=== PATIENT | male | born 1955 | race Caucasian/White ===

== ENCOUNTER 2018-07-14 14:50 | Emergency (ER) | payer BC ==
[2018-07-14 15:02] VITALS: TEMP 98.3
--- NOTE | 2018-07-14 15:18 | ED ---
General Adult HPI - General Chief complaint: Back Pain/Injury Stated complaint: back pain/poss kidney stones Time Seen by Provider: 07/14/18 15:03 Source: patient Mode of arrival: ambulatory Limitations: no limitations - History of Present Illness Initial comments: 63-year-old male presenting today for chief complaint of right-sided flank pain that structures towards the right groin. Patient states that he has history of kidney stones. He states this feels similar however intensified from his usual. He states he has had some nausea and vomiting. He states his urine appears darker. Patient presented for evaluation and pain control. Patient has fever or chills night sweat. Denies dysuria urgency frequency. Patient has a chest pain or short of breath he denies any lower extremity swelling. Remaining review of systems negative. Upon arrival patient appears well. - Related Data Home Medications Medication Instructions Recorded Confirmed Ascorbic Acid [Vitamin C] 1,000 mcg PO DAILY 07/14/18 07/14/18 Cholecalciferol (Vitamin D3) 2,000 unit PO DAILY 07/14/18 07/14/18 [Vitamin D3] Metoprolol Succinate (ER) [Toprol 50 mg PO BID 07/14/18 07/14/18 XL] [place]-3 Fatty Acids/Fish Oil [Fish 1 cap PO DAILY 07/14/18 07/14/18 Oil 1,000 mg Softgel] Sertraline [Zoloft] 50 mg PO DAILY 07/14/18 07/14/18 Simvastatin [Zocor] 20 mg PO DAILY 07/14/18 07/14/18 amLODIPine [Norvasc] 5 mg PO DAILY 07/14/18 07/14/18 Previous Rx's Medication Instructions Recorded Cephalexin [Keflex] 500 mg PO Q12HR 3 Days #6 cap 07/14/18 Ketorolac [Toradol] 10 mg PO Q6HR PRN 5 Days #20 tab 07/14/18 Ondansetron Odt [Zofran Odt] 4 mg PO Q8HR PRN 5 Days #15 tab 07/14/18 Allergies Allergy/AdvReac Type Severity Reaction Status Date / Time No Known Allergies Allergy Verified 07/14/18 15:34 Review of Systems ROS Statement: Those systems with pertinent positive or pertinent negative responses have been documented in the HPI. ROS Other: All systems not noted in ROS Statement are negative. Past Medical History Past Medical History: Hyperlipidemia, Hypertension Additional Past Medical History / Comment(s): kidney stones History of Any Multi-Drug Resistant Organisms: None Reported Past Psychological History: Depression Smoking Status: Never smoker Past Alcohol Use History: None Reported Past Drug Use History: None Reported General Exam - General Exam Comments Initial Comments: General: The patient is awake and alert, in no distress, and does not appear acutely ill. Eye: +3 mm pupils are equal, round and reactive to light, extra-ocular movements are intact. No nystagmus. There is normal conjunctiva bilaterally. No signs of icterus. Ears, nose, mouth and throat: There are moist mucous membranes and no oral lesions. Neck: The neck is supple, there is no tenderness or JVD. Cardiovascular: There is a regular rate and rhythm. No murmur, rub or gallop is appreciated. Respiratory: Lungs are clear to auscultation, respirations are non-labored, breath sounds are equal. No wheezes, stridor, rales, or rhonchi. Gastrointestinal: Soft, non-distended, non-tender abdomen without masses or organomegaly noted. There is no rebound or guarding present. No CVA tenderness. Bowel sounds are unremarkable. Musculoskeletal: Normal ROM, no tenderness. Strength 5/5. Sensation intact. Radial pulses equal bilaterally 2+. Neurological: A&O x 3. CN II-XII intact, There are no obvious motor or sensory deficits. Coordination appears grossly intact. Speech is normal. Skin: Skin is warm and dry and no rashes or lesions are noted. Psychiatric: Cooperative, appropriate mood & affect, normal judgment. Limitations: no limitations Course Vital Signs 07/14/18 07/14/18 14:59 16:30 Temperature 98.3 F Pulse Rate 73 73 Respiratory 18 16 Rate Blood Pressure 186/96 185/100 O2 Sat by Pulse 96 94 L Oximetry Medical Decision Making - Medical Decision Making Appearing 63-year-old male presenting today for chief complaint of right-sided flank pain. Patient states feels similar to when he had kidney stones in the past. Patient has not had recent imaging studies. Urinalysis revealed red blood cells. CT of the abdomen and pelvis revealed 7mm of the mid ureter renal calculi, mild perinephritic stranding and hydronephrosis. Patient denies any constitutional symptoms fever chills or night sweats afebrile upon arrival. No white blood cells or nitrites on urinalysis concerning for infection. At this time feel patient is stable for discharge with outpatient urology follow-up she'll be given for special for Toradol as well as Keflex. Patient is agreeable with care plan in is aware of return parameters which were discussed. Patient is aware of the importance of outpatient urology follow-up. After discussing case attempt by Dr. Cortez patient was discharged appearing well - Lab Data Result diagrams: 07/14/18 15:44 07/14/18 15:44 Lab Results 07/14/18 07/14/18 07/14/18 Range/Units 15:44 15:44 16:30 WBC 10.4 (3.8-10.6) k/uL RBC 5.35 (4.30-5.90) m/uL Hgb 15.3 (13.0-17.5) gm/dL Hct 47.5 (39.0-53.0) % MCV 88.7 (80.0-100.0) fL MCH 28.6 (25.0-35.0) pg MCHC 32.3 (31.0-37.0) g/dL RDW 14.5 (11.5-15.5) % Plt Count 253 (150-450) k/uL Neutrophils % 77 % Lymphocytes % 14 % Monocytes % 6 % Eosinophils % 2 % Basophils % 0 % Neutrophils # 8.0 H (1.3-7.7) k/uL Lymphocytes # 1.4 (1.0-4.8) k/uL Monocytes # 0.6 (0-1.0) k/uL Eosinophils # 0.2 (0-0.7) k/uL Basophils # 0.0 (0-0.2) k/uL Sodium 139 (137-145) mmol/L Potassium 4.2 (3.5-5.1) mmol/L Chloride 105 (98-107) mmol/L Carbon Dioxide 27 (22-30) mmol/L Anion Gap 7 mmol/L BUN 14 (9-20) mg/dL Creatinine 0.76 (0.66-1.25) mg/dL Est GFR (CKD-EPI)AfAm >90 (>60 ml/min/1.73 sqM) Est GFR (CKD-EPI)NonAf >90 (>60 ml/min/1.73 sqM) Glucose 105 H (74-99) mg/dL Calcium 9.7 (8.4-10.2) mg/dL Total Bilirubin 0.5 (0.2-1.3) mg/dL AST 41 (17-59) U/L ALT 39 (21-72) U/L Alkaline Phosphatase 73 (38-126) U/L Total Protein 7.5 (6.3-8.2) g/dL Albumin 4.5 (3.5-5.0) g/dL Urine Color Light Yellow Urine Appearance Clear (Clear) Urine pH 7.0 (5.0-8.0) Ur Specific [place] 1.013 (1.001-1.035) Urine Protein Negative (Negative) Urine Glucose (UA) Negative (Negative) Urine Ketones Negative (Negative) Urine Blood Small H (Negative) Urine Nitrite Negative (Negative) Urine Bilirubin Negative (Negative) Urine Urobilinogen <2.0 (<2.0) mg/dL Ur Leukocyte Esterase Negative (Negative) Urine RBC 62 H (0-5) /hpf Urine WBC <1 (0-5) /hpf Urine Mucus Rare H (None) /hpf Disposition Clinical Impression: Kidney stone on right side Disposition: HOME SELF-CARE Condition: Good Instructions (If sedation given, give patient instructions): Kidney Stones (ED) Additional Instructions: Please use medication as discussed. Please follow-up with family doctor in the next 2 days, urology in next 2-3 days. Please return to emergency room if the symptoms increase or worsen or for any other concerns. Prescriptions: Cephalexin [Keflex] 500 mg PO Q12HR 3 Days #6 cap Ketorolac [Toradol] 10 mg PO Q6HR PRN 5 Days #20 tab PRN Reason: Severe Pain Ondansetron Odt [Zofran Odt] 4 mg PO Q8HR PRN 5 Days #15 tab PRN Reason: Nausea Is patient prescribed a controlled substance at d/c from ED?: No Referrals: Christian Singh MD [Primary Care Provider] - 1-2 days Charles Cason MD [STAFF PHYSICIAN] - 1-2 days Time of Disposition: 18:07
[2018-07-14] MEDS ORDERED: ONDANSETRON 4 MG/2 ML VIAL IVP STA (16:03)
[2018-07-14] MEDS ORDERED: KETOROLAC 30 MG/ML 1 ML VIAL IVP STA (16:03)
[2018-07-14 16:05] LABS: Basophils % (A) 0 %; Eosinophils # (A) 0.2 k/uL (0-0.7); Eosinophils % (A) 2 %; HCT 47.5 % (39.0-53.0); HGB 15.3 gm/dL (13.0-17.5); Lymphocytes # (A) 1.4 k/uL (1.0-4.8); Lymphocytes % (A) 14 %; MCH 28.6 pg (25.0-35.0); MCHC 32.3 g/dL (31.0-37.0); MCV 88.7 fL (80.0-100.0); Mean Platelet Volume 6.2; Monocytes # (A) 0.6 k/uL (0-1.0); Monocytes % (A) 6 %; Neutrophils % (A) 77 %; Platelet Count 253 k/uL (150-450); RBC 5.35 m/uL (4.30-5.90); RDW 14.5 % (11.5-15.5); WBC 10.4 k/uL (3.8-10.6)
[2018-07-14 16:15] LABS: ALT 39 U/L (21-72); AST 41 U/L (17-59); Albumin 4.5 g/dL (3.5-5.0); Alkaline Phosphatase 73 U/L (38-126); Anion Gap 7 mmol/L; Blood Urea Nitrogen 14 mg/dL (9-20); Calcium 9.7 mg/dL (8.4-10.2); Carbon Dioxide 27 mmol/L (22-30); Chloride 105 mmol/L (98-107); Glucose 105 mg/dL (74-99); Potassium 4.2 mmol/L (3.5-5.1); Sodium 139 mmol/L (137-145); Total Bilirubin 0.5 mg/dL (0.2-1.3); Total Protein 7.5 g/dL (6.3-8.2)
[2018-07-14 16:44] LABS: Appearance,Urine Clear (Clear); Bilirubin,Urine Negative (Negative); Blood,Urine Small (Negative); Color,Urine Light Yellow; Glucose,Urine (UA) Negative (Negative); Ketones,Urine Negative (Negative); Leukocyte Esterase,Urine Negative (Negative); Mucus,Urine Rare /hpf; Nitrite,Urine Negative (Negative); Protein,Urine Negative (Negative); RBC,Urine 62 /hpf (0-5); Specific Gravity,Urine 1.013 (1.001-1.035); Urobilinogen,Urine <2.0 mg/dL (<2.0); WBC,Urine <1 /hpf (0-5)
--- NOTE | 2018-07-14 17:33 | CT ---
EXAMINATION TYPE: CT abdomen pelvis w con DATE OF EXAM: 07/14/2018 COMPARISON: None HISTORY: Right flank pain. Kidney stone CT DLP: 3150.4 mGycm Automated exposure control for dose reduction was used. TECHNIQUE: Helical acquisition of images was performed from the lung bases through the pelvis. CONTRAST: Performed without Oral Contrast and with IV Contrast, patient injected with 100 mL of Isovue 300. FINDINGS: There is some atelectasis at the lung bases. Heart size is fairly normal. There is no pericardial eff usion. Stomach appears normal. Liver spleen pancreas gallbladder appear normal. Bile ducts are not dilated. There is no adrenal mass. There are a few 5 mm calculi in the interpolar left kidney. There is simila r 4 mm calculus anterior right kidney. There is right-sided hydronephrosis and perinephric edema. The re is right sided hydroureter with 7 mm calculus in the mid right ureter. Bladder distends smoothly. There is no pelvic mass. There is no inguinal hernia. There is no free fluid in the pelvis. There is no evidence of a bowel obstruction. Appendix appears normal. There is no mesenteric edema. T here is no sign of free air. There is no ascites. There is some spondylotic change in the lumbar spin e. There is a mild retrolisthesis at L5-S1. There is no compression fracture. IMPRESSION: BILATERAL RENAL CALCULI. OBSTRUCTING CALCULUS MID RIGHT URETER WITH RIGHT-SIDED HYDRONEPHROSIS AND PE RINEPHRIC EDEMA.
[2018-07-14 18:26] VITALS: BP 176/98; PULSE 71; RESP 18
== END 2018-07-14 18:17 | disposition home or self-care (01) ==
LOC: EC 14:50
DX: N13.2 Hydronephrosis with renal and ureteral calculous obstruction (principal); E78.5 Hyperlipidemia, unspecified; I10 Essential (primary) hypertension; F32.9 Major depressive disorder, single episode, unspecified; Z79.899 Other long term (current) drug therapy
CPT/HCPCS: 36415; 80053; 85025; 81001; 74177; 99284; 96374; 96375; J2405; J1885; Q9967

== ENCOUNTER 2020-03-10 11:19 | Emergency (ER) | payer BC ==
[2020-03-10 11:29] VITALS: TEMP 99.3
[2020-03-10] MEDS ORDERED: SODIUM CHLORIDE 0.9% 1,000 ML IV STA (11:42)
--- NOTE | 2020-03-10 11:51 | ED ---
General Adult HPI - General Chief complaint: Nausea/Vomiting/Diarrhea Stated complaint: nausea,vomiting/fever Time Seen by Provider: 03/10/20 11:31 Source: patient, RN notes reviewed Mode of arrival: ambulatory Limitations: no limitations - History of Present Illness Initial comments: This is a 64-year-old male presents emergency Department chief complaint of just does not feel well times one week. Patient states that he's had body aches, nausea vomiting diarrhea. Patient states he initially started with a headache, body aches is really fatigued. Patient states he did present to urgent care in which he had a negative: Spot at that time. Patient states that he's had no sick contacts he denies any difficulty breathing at this time. Patient does take medications for hyperlipidemia, depression, hypertension. Patient has no dysuria no hematuria no melena hematochezia no chest pain no headache currently no blurred vision - Related Data Home Medications Medication Instructions Recorded Confirmed Ascorbic Acid [Vitamin C] 1,000 mcg PO DAILY 07/14/18 07/14/18 Cholecalciferol (Vitamin D3) 2,000 unit PO DAILY 07/14/18 07/14/18 [Vitamin D3] Metoprolol Succinate (ER) [Toprol 50 mg PO BID 07/14/18 07/14/18 XL] [place]-3 Fatty Acids/Fish Oil [Fish 1 cap PO DAILY 07/14/18 07/14/18 Oil 1,000 mg Softgel] Sertraline [Zoloft] 50 mg PO DAILY 07/14/18 07/14/18 Simvastatin [Zocor] 20 mg PO DAILY 07/14/18 07/14/18 amLODIPine [Norvasc] 5 mg PO DAILY 07/14/18 07/14/18 Previous Rx's Medication Instructions Recorded Cephalexin [Keflex] 500 mg PO Q12HR 3 Days #6 cap 07/14/18 Ketorolac [Toradol] 10 mg PO Q6HR PRN 5 Days #20 tab 07/14/18 Ondansetron Odt [Zofran Odt] 4 mg PO Q8HR PRN 5 Days #15 tab 07/14/18 Ondansetron Odt [Zofran Odt] 4 mg PO Q8HR PRN #10 tab 03/10/20 Allergies Allergy/AdvReac Type Severity Reaction Status Date / Time No Known Allergies Allergy Verified 03/10/20 11:29 Review of Systems ROS Statement: Those systems with pertinent positive or pertinent negative responses have been documented in the HPI. ROS Other: All systems not noted in ROS Statement are negative. Past Medical History Past Medical History: Hyperlipidemia, Hypertension Additional Past Medical History / Comment(s): kidney stones History of Any Multi-Drug Resistant Organisms: None Reported Past Surgical History: No Surgical Hx Reported Past Psychological History: Depression Smoking Status: Never smoker Past Alcohol Use History: None Reported Past Drug Use History: None Reported General Exam Limitations: no limitations General appearance: alert, in no apparent distress Head exam: Present: atraumatic, normocephalic, normal inspection Eye exam: Present: normal appearance, PERRL, EOMI. Absent: scleral icterus, conjunctival injection, periorbital swelling ENT exam: Present: normal exam, normal oropharynx, mucous membranes moist Neck exam: Present: normal inspection, full ROM. Absent: tenderness, meningismus, lymphadenopathy Respiratory exam: Present: normal lung sounds bilaterally. Absent: respiratory distress, wheezes, rales, rhonchi, stridor Cardiovascular Exam: Present: regular rate, normal rhythm, normal heart sounds. Absent: systolic murmur, diastolic murmur, rubs, gallop, clicks GI/Abdominal exam: Present: soft, normal bowel sounds. Absent: distended, tenderness, guarding, rebound, rigid Neurological exam: Present: alert, oriented X3 Skin exam: Present: warm, dry, intact, normal color. Absent: rash Course Vital Signs 03/10/20 03/10/20 03/10/20 11:27 12:30 12:34 Temperature 99.3 F Pulse Rate 90 Respiratory 20 18 Rate Blood Pressure 186/86 O2 Sat by Pulse 92 L 90 L 93 L Oximetry 03/10/20 03/10/20 12:53 13:29 Temperature Pulse Rate 91 Respiratory 18 18 Rate Blood Pressure 153/81 O2 Sat by Pulse 93 L Oximetry Medical Decision Making - Medical Decision Making Chest x-ray shows minimal changes. Patient is covid positive. Labs are essentially unremarkable mild ketonuria. Patient was given minimal fluids states he feels improved. Patient updated on results and is requesting for discharged. Return parameters were discussed. - Lab Data Result diagrams: 03/10/20 11:52 03/10/20 11:52 Lab Results 03/10/20 03/10/20 03/10/20 Range/Units 11:52 11:52 11:52 WBC 4.8 (3.8-10.6) k/uL RBC 5.25 (4.30-5.90) m/uL Hgb 15.4 (13.0-17.5) gm/dL Hct 45.9 (39.0-53.0) % MCV 87.5 (80.0-100.0) fL MCH 29.4 (25.0-35.0) pg MCHC 33.6 (31.0-37.0) g/dL RDW 13.8 (11.5-15.5) % Plt Count 195 (150-450) k/uL MPV 6.5 Neutrophils % 77 % Lymphocytes % 14 % Monocytes % 6 % Eosinophils % 0 % Basophils % 2 % Neutrophils # 3.7 (1.3-7.7) k/uL Lymphocytes # 0.7 L (1.0-4.8) k/uL Monocytes # 0.3 (0-1.0) k/uL Eosinophils # 0.0 (0-0.7) k/uL Basophils # 0.1 (0-0.2) k/uL Sodium 136 L (137-145) mmol/L Potassium 4.0 (3.5-5.1) mmol/L Chloride 99 (98-107) mmol/L Carbon Dioxide 29 (22-30) mmol/L Anion Gap 8 mmol/L BUN 14 (9-20) mg/dL Creatinine 0.75 (0.66-1.25) mg/dL Est GFR (CKD-EPI)AfAm >90 (>60 ml/min/1.73 sqM) Est GFR (CKD-EPI)NonAf >90 (>60 ml/min/1.73 sqM) Glucose 128 H (74-99) mg/dL Plasma Lactic Acid [place] 1.6 (0.7-2.0) mmol/L Calcium 8.9 (8.4-10.2) mg/dL Total Bilirubin 0.8 (0.2-1.3) mg/dL AST 40 (17-59) U/L ALT 25 (4-49) U/L Alkaline Phosphatase 65 (38-126) U/L Total Protein 7.3 (6.3-8.2) g/dL Albumin 4.0 (3.5-5.0) g/dL Lipase 244 (23-300) U/L Urine Color Urine Appearance (Clear) Urine pH (5.0-8.0) Ur Specific [place] (1.001-1.035) Urine Protein (Negative) Urine Glucose (UA) (Negative) Urine Ketones (Negative) Urine Blood (Negative) Urine Nitrite (Negative) Urine Bilirubin (Negative) Urine Urobilinogen (<2.0) mg/dL Ur Leukocyte Esterase (Negative) Urine RBC (0-5) /hpf Urine WBC (0-5) /hpf Urine Mucus (None) /hpf Coronavirus (PCR) (Not Detectd) 03/10/20 03/10/20 Range/Units 11:52 13:50 WBC (3.8-10.6) k/uL RBC (4.30-5.90) m/uL Hgb (13.0-17.5) gm/dL Hct (39.0-53.0) % MCV (80.0-100.0) fL MCH (25.0-35.0) pg MCHC (31.0-37.0) g/dL RDW (11.5-15.5) % Plt Count (150-450) k/uL MPV Neutrophils % % Lymphocytes % % Monocytes % % Eosinophils % % Basophils % % Neutrophils # (1.3-7.7) k/uL Lymphocytes # (1.0-4.8) k/uL Monocytes # (0-1.0) k/uL Eosinophils # (0-0.7) k/uL Basophils # (0-0.2) k/uL Sodium (137-145) mmol/L Potassium (3.5-5.1) mmol/L Chloride (98-107) mmol/L Carbon Dioxide (22-30) mmol/L Anion Gap mmol/L BUN (9-20) mg/dL Creatinine (0.66-1.25) mg/dL Est GFR (CKD-EPI)AfAm (>60 ml/min/1.73 sqM) Est GFR (CKD-EPI)NonAf (>60 ml/min/1.73 sqM) Glucose (74-99) mg/dL Plasma Lactic Acid [place]y (0.7-2.0) mmol/L Calcium (8.4-10.2) mg/dL Total Bilirubin (0.2-1.3) mg/dL AST (17-59) U/L ALT (4-49) U/L Alkaline Phosphatase (38-126) U/L Total Protein (6.3-8.2) g/dL Albumin (3.5-5.0) g/dL Lipase (23-300) U/L Urine Color Yellow Urine Appearance Clear (Clear) Urine pH 5.5 (5.0-8.0) Ur Specific [place] 1.023 (1.001-1.035) Urine Protein 1+ H (Negative) Urine Glucose (UA) Negative (Negative) Urine Ketones 2+ H (Negative) Urine Blood Trace H (Negative) Urine Nitrite Negative (Negative) Urine Bilirubin Negative (Negative) Urine Urobilinogen <2.0 (<2.0) mg/dL Ur Leukocyte Esterase Negative (Negative) Urine RBC 2 (0-5) /hpf Urine WBC 2 (0-5) /hpf Urine Mucus Rare H (None) /hpf Coronavirus (PCR) Detected A (Not Detectd) Disposition Clinical Impression: COVID-19, Nausea vomiting and diarrhea Disposition: HOME SELF-CARE Condition: Stable Instructions (If sedation given, give patient instructions): Acute Nausea and Vomiting (ED), Acute Diarrhea (ED) Additional Instructions: Please return to the Emergency Department if symptoms worsen or any other concerns. Prescriptions: Ondansetron Odt [Zofran Odt] 4 mg PO Q8HR PRN #10 tab PRN Reason: Nausea Is patient prescribed a controlled substance at d/c from ED?: No Referrals: Christian Singh MD [Primary Care Provider] - 1-2 days Time of Disposition: 14:35
[2020-03-10] MEDS ORDERED: ONDANSETRON 4 MG/2 ML VIAL IVP STA (12:07)
[2020-03-10 12:11] LABS: Basophils # (A) 0.1 k/uL (0-0.2); Basophils % (A) 2 %; Eosinophils % (A) 0 %; HCT 45.9 % (39.0-53.0); HGB 15.4 gm/dL (13.0-17.5); Lymphocytes # (A) 0.7 k/uL (1.0-4.8); Lymphocytes % (A) 14 %; MCH 29.4 pg (25.0-35.0); MCHC 33.6 g/dL (31.0-37.0); MCV 87.5 fL (80.0-100.0); Mean Platelet Volume 6.5; Monocytes # (A) 0.3 k/uL (0-1.0); Monocytes % (A) 6 %; Neutrophils # (A) 3.7 k/uL (1.3-7.7); Neutrophils % (A) 77 %; Platelet Count 195 k/uL (150-450); RBC 5.25 m/uL (4.30-5.90); RDW 13.8 % (11.5-15.5); WBC 4.8 k/uL (3.8-10.6)
[2020-03-10 12:20] LABS: ALT 25 U/L (4-49); AST 40 U/L (17-59); African American GFR (CKD) >90 (>60 ml/min/1.73 sqM); Alkaline Phosphatase 65 U/L (38-126); Anion Gap 8 mmol/L; Blood Urea Nitrogen 14 mg/dL (9-20); Calcium 8.9 mg/dL (8.4-10.2); Carbon Dioxide 29 mmol/L (22-30); Chloride 99 mmol/L (98-107); Glucose 128 mg/dL (74-99); Lipase 244 U/L (23-300); Non-African American GFR(CKD) >90 (>60 ml/min/1.73 sqM); Sodium 136 mmol/L (137-145); Total Bilirubin 0.8 mg/dL (0.2-1.3); Total Protein 7.3 g/dL (6.3-8.2)
[2020-03-10 12:31] VITALS: RESP 18
--- NOTE | 2020-03-10 12:32 | XR ---
EXAMINATION TYPE: XR chest 2V DATE OF EXAM: 03/10/2020 COMPARISON: NONE TECHNIQUE: PA and lateral views submitted. HISTORY: Pain FINDINGS: Patchy left perihilar infiltrate. No pneumothorax or pleural effusion. Heart size normal. Hypertrophi c and degenerative change of the spine. IMPRESSION: 1. Patchy left perihilar infiltrate correlate for pneumonitis
[2020-03-10 13:30] VITALS: BP 153/81; PULSE 91
[2020-03-10 14:04] LABS: Appearance,Urine Clear (Clear); Bilirubin,Urine Negative (Negative); Blood,Urine Trace (Negative); Color,Urine Yellow; Glucose,Urine (UA) Negative (Negative); Ketones,Urine 2+ (Negative); Leukocyte Esterase,Urine Negative (Negative); Mucus,Urine Rare /hpf; Nitrite,Urine Negative (Negative); PH, Urine 5.5 (5.0-8.0); Protein,Urine 1+ (Negative); RBC,Urine 2 /hpf (0-5); Specific Gravity,Urine 1.023 (1.001-1.035); Urobilinogen,Urine <2.0 mg/dL (<2.0); WBC,Urine 2 /hpf (0-5)
== END 2020-03-10 14:49 | disposition home or self-care (01) ==
LOC: EC 11:19
DX: U07.1 COVID-19 (principal); R11.2 Nausea with vomiting, unspecified; F32.9 Major depressive disorder, single episode, unspecified; E78.5 Hyperlipidemia, unspecified; I10 Essential (primary) hypertension; Z79.899 Other long term (current) drug therapy
CPT/HCPCS: 36415; 80053; 83605; 83690; 85025; 81001; 87635; 71046; 99284; 96374; 96361 ×3; J2405

== ENCOUNTER 2020-11-06 21:41 | Emergency (ER) | payer BC ==
[2020-11-06 22:06] VITALS: RESP 20
--- NOTE | 2020-11-06 22:17 | ED ---
General Adult HPI - General Chief complaint: Chest Pain Stated complaint: Chest Pain Time Seen by Provider: 11/06/20 21:47 Source: patient, RN notes reviewed Mode of arrival: ambulatory Limitations: no limitations - History of Present Illness Initial comments: This is a 65-year-old gentleman the presents emergency Department with chief complaint of epigastric discomfort. Patient states that he was eating dinner around 6:30 started having some indigestion which she states she has some pressure in his epigastric region he ended up taking some Tums around 7 and states that within 15 minutes he felt much better states she has no current symptoms at this time. He did check his blood pressure at home and which is elevated which concerned the patient. Patient does take medications for hypertension states he has not missed any doses. Patient avoid shortness breath, diaphoresis, nausea vomiting no fevers or chills - Related Data Home Medications Medication Instructions Recorded Confirmed Metoprolol Succinate (ER) [Toprol 75 mg PO BID 07/14/18 11/06/20 XL] Sertraline [Zoloft] 50 mg PO DAILY 07/14/18 11/06/20 Simvastatin [Zocor] 20 mg PO HS 07/14/18 11/06/20 amLODIPine [Norvasc] 5 mg PO DAILY 07/14/18 11/06/20 Allergies Allergy/AdvReac Type Severity Reaction Status Date / Time No Known Allergies Allergy Verified 11/06/20 22:58 Review of Systems ROS Statement: Those systems with pertinent positive or pertinent negative responses have been documented in the HPI. ROS Other: All systems not noted in ROS Statement are negative. Past Medical History Past Medical History: Hyperlipidemia, Hypertension Additional Past Medical History / Comment(s): kidney stones History of Any Multi-Drug Resistant Organisms: None Reported Past Surgical History: No Surgical Hx Reported Past Psychological History: Depression Smoking Status: Never smoker Past Alcohol Use History: None Reported Past Drug Use History: None Reported General Exam Limitations: no limitations General appearance: alert, in no apparent distress Head exam: Present: atraumatic, normocephalic, normal inspection Eye exam: Present: normal appearance, PERRL, EOMI. Absent: scleral icterus, conjunctival injection, periorbital swelling ENT exam: Present: normal exam, normal oropharynx, mucous membranes moist Neck exam: Present: normal inspection, full ROM. Absent: tenderness, meningismus, lymphadenopathy Respiratory exam: Present: normal lung sounds bilaterally. Absent: respiratory distress, wheezes, rales, rhonchi, stridor Cardiovascular Exam: Present: regular rate, normal rhythm, normal heart sounds. Absent: systolic murmur, diastolic murmur, rubs, gallop, clicks GI/Abdominal exam: Present: soft, normal bowel sounds. Absent: distended, tenderness, guarding, rebound, rigid Course Vital Signs 11/06/20 11/06/20 11/06/20 21:42 22:03 23:00 Temperature 98.3 F Pulse Rate 84 73 70 Respiratory 18 20 20 Rate Blood Pressure 217/95 127/65 155/83 O2 Sat by Pulse 96 94 L 95 Oximetry 11/07/20 00:15 Temperature 98.0 F Pulse Rate 64 Respiratory 20 Rate Blood Pressure 153/84 O2 Sat by Pulse 94 L Oximetry Medical Decision Making - Medical Decision Making 65-year-old male presented from for epigastric discomfort, reflux. Patient is asymptomatic upon arrival troponin is negative 2. Patient discharged in stable condition. - Lab Data Result diagrams: 11/06/20 22:15 11/06/20 22:15 Lab Results 11/06/20 11/06/20 11/06/20 Range/Units 22:15 22:15 22:15 WBC 9.4 (3.8-10.6) k/uL RBC 5.44 (4.30-5.90) m/uL Hgb 17.0 (13.0-17.5) gm/dL Hct 49.0 (39.0-53.0) % MCV 90.2 (80.0-100.0) fL MCH 31.3 (25.0-35.0) pg MCHC 34.7 (31.0-37.0) g/dL RDW 13.9 (11.5-15.5) % Plt Count 247 (150-450) k/uL MPV 6.5 Neutrophils % 67 % Lymphocytes % 25 % Monocytes % 5 % Eosinophils % 2 % Basophils % 0 % Neutrophils # 6.3 (1.3-7.7) k/uL Lymphocytes # 2.4 (1.0-4.8) k/uL Monocytes # 0.5 (0-1.0) k/uL Eosinophils # 0.2 (0-0.7) k/uL Basophils # 0.0 (0-0.2) k/uL PT 10.3 (9.0-12.0) sec INR 1.0 (<1.2) APTT 23.1 (22.0-30.0) sec Sodium 139 (137-145) mmol/L Potassium 4.0 (3.5-5.1) mmol/L Chloride 100 (98-107) mmol/L Carbon Dioxide 30 (22-30) mmol/L Anion Gap 9 mmol/L BUN 17 (9-20) mg/dL Creatinine 0.91 (0.66-1.25) mg/dL Est GFR (CKD-EPI)AfAm >90 (>60 ml/min/1.73 sqM) Est GFR (CKD-EPI)NonAf 89 (>60 ml/min/1.73 sqM) Glucose 125 H (74-99) mg/dL Calcium 10.7 H (8.4-10.2) mg/dL Magnesium 2.1 (1.6-2.3) mg/dL Total Bilirubin 0.4 (0.2-1.3) mg/dL AST 33 (17-59) U/L ALT 24 (4-49) U/L Alkaline Phosphatase 77 (38-126) U/L Troponin I (0.000-0.034) ng/mL Total Protein 7.7 (6.3-8.2) g/dL Albumin 4.6 (3.5-5.0) g/dL Lipase 200 (23-300) U/L 11/06/20 11/07/20 Range/Units 22:15 00:13 WBC (3.8-10.6) k/uL RBC (4.30-5.90) m/uL Hgb (13.0-17.5) gm/dL Hct (39.0-53.0) % MCV (80.0-100.0) fL MCH (25.0-35.0) pg MCHC (31.0-37.0) g/dL RDW (11.5-15.5) % Plt Count (150-450) k/uL MPV Neutrophils % % Lymphocytes % % Monocytes % % Eosinophils % % Basophils % % Neutrophils # (1.3-7.7) k/uL Lymphocytes # (1.0-4.8) k/uL Monocytes # (0-1.0) k/uL Eosinophils # (0-0.7) k/uL Basophils # (0-0.2) k/uL PT (9.0-12.0) sec INR (<1.2) APTT (22.0-30.0) sec Sodium (137-145) mmol/L Potassium (3.5-5.1) mmol/L Chloride (98-107) mmol/L Carbon Dioxide (22-30) mmol/L Anion Gap mmol/L BUN (9-20) mg/dL Creatinine (0.66-1.25) mg/dL Est GFR (CKD-EPI)AfAm (>60 ml/min/1.73 sqM) Est GFR (CKD-EPI)NonAf (>60 ml/min/1.73 sqM) Glucose (74-99) mg/dL Calcium (8.4-10.2) mg/dL Magnesium (1.6-2.3) mg/dL Total Bilirubin (0.2-1.3) mg/dL AST (17-59) U/L ALT (4-49) U/L Alkaline Phosphatase (38-126) U/L Troponin I <0.012 <0.012 (0.000-0.034) ng/mL Total Protein (6.3-8.2) g/dL Albumin (3.5-5.0) g/dL Lipase (23-300) U/L Disposition Clinical Impression: GERD (gastroesophageal reflux disease) Disposition: HOME SELF-CARE Condition: Stable Instructions (If sedation given, give patient instructions): Gastroesophageal Reflux Disease (ED) Additional Instructions: Please return to the Emergency Department if symptoms worsen or any other concerns. Is patient prescribed a controlled substance at d/c from ED?: No Referrals: Christian Singh MD [Primary Care Provider] - 1-2 days Time of Disposition: 01:01
--- NOTE | 2020-11-06 22:26 | XR ---
EXAMINATION TYPE: XR chest 2V DATE OF EXAM: 11/06/2020 COMPARISON: 03/10/2020 HISTORY: Chest pain TECHNIQUE: 2 views FINDINGS: Heart and mediastinum are normal. Lungs are clear. Diaphragm is normal. Bony thorax is inta ct. There are chest leads. IMPRESSION: No active cardiopulmonary disease. There is clearing of the mild infiltrate left lower lo be compared to old exam.
[2020-11-06 22:28] LABS: Basophils % (A) 0 %; Eosinophils # (A) 0.2 k/uL (0-0.7); Eosinophils % (A) 2 %; Lymphocytes # (A) 2.4 k/uL (1.0-4.8); Lymphocytes % (A) 25 %; MCH 31.3 pg (25.0-35.0); MCHC 34.7 g/dL (31.0-37.0); MCV 90.2 fL (80.0-100.0); Mean Platelet Volume 6.5; Monocytes # (A) 0.5 k/uL (0-1.0); Monocytes % (A) 5 %; Neutrophils # (A) 6.3 k/uL (1.3-7.7); Neutrophils % (A) 67 %; Platelet Count 247 k/uL (150-450); RBC 5.44 m/uL (4.30-5.90); RDW 13.9 % (11.5-15.5); WBC 9.4 k/uL (3.8-10.6)
[2020-11-06 22:38] LABS: Partial Thromboplastin Time 23.1 sec (22.0-30.0); Prothrombin Time 10.3 sec (9.0-12.0)
[2020-11-06 22:40] LABS: ALT 24 U/L (4-49); AST 33 U/L (17-59); African American GFR (CKD) >90 (>60 ml/min/1.73 sqM); Albumin 4.6 g/dL (3.5-5.0); Alkaline Phosphatase 77 U/L (38-126); Anion Gap 9 mmol/L; Blood Urea Nitrogen 17 mg/dL (9-20); Calcium 10.7 mg/dL (8.4-10.2); Carbon Dioxide 30 mmol/L (22-30); Chloride 100 mmol/L (98-107); Glucose 125 mg/dL (74-99); Lipase 200 U/L (23-300); Magnesium 2.1 mg/dL (1.6-2.3); Non-African American GFR(CKD) 89 (>60 ml/min/1.73 sqM); Sodium 139 mmol/L (137-145); Total Bilirubin 0.4 mg/dL (0.2-1.3); Total Protein 7.7 g/dL (6.3-8.2)
[2020-11-07 00:15] VITALS: BP 153/84; PULSE 64; TEMP 98
== END 2020-11-07 01:09 | disposition home or self-care (01) ==
LOC: EC 21:41
DX: K21.9 Gastro-esophageal reflux disease without esophagitis (principal); I10 Essential (primary) hypertension; E78.5 Hyperlipidemia, unspecified; F32.9 Major depressive disorder, single episode, unspecified; Z79.899 Other long term (current) drug therapy
CPT/HCPCS: 36415; 71046; 80053; 83690; 83735; 84484; 85025; 85610; 85730; 93005; 99284

== ENCOUNTER → 2021-02-11 | Outpatient (CLI) | payer BC ==
--- NOTE | 2021-02-11 16:22 | CONS ---
CONSULTATION REASON FOR CONSULTATION: Sleep apnea. 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 Original diagnosis was done in [place] 12 years ago. At that time, the patient was told to have severe obstructive sleep apnea. The patient was given a REM Star M series at a CPAP pressure of 12 cm of water. The patient also using a Mirage Quattro fullface mask medium size. Note that since the time of diagnosis, the patient has lost 35 pounds. He thinks that despite his weight loss, he continues to have symptoms to suggest obstructive sleep apnea. For instance, the patient lost power and he was unable to use the machine for a few days and he got to a point where he was unable to sleep and he went on a recliner and keeping himself elevated because of his ongoing issues with snoring and witnessed apneas and waking up choking and gasping for air. As such, he is pretty sure that he continues to have active manifestations of sleep apnea despite his weight loss. Otherwise, his comorbid conditions include hypertension. His blood pressure is elevated. No major hypersomnia or sleepiness especially when he is using his CPAP. He is interested in updating his CPAP machine and is looking also for other alternatives in terms of his mask. It has been a long time since the patient has been diagnosed and treated with CPAP and the patient wanted to establish himself and have a re-evaluation. He is going to bed around 12:30 am, wakes up 7:00 am in the morning. He maintains a good sleep schedule. No recent weight gain. He has gained only 3 pounds over the past one year. No sleep paralysis. No hallucinations. No cataplexy. No substance abuse. Sleep hygiene measures are generally good. He wakes up refreshed especially when he uses CPAP and he sleeps around 6-8 hours per night. PAST MEDICAL HISTORY: Obstructive sleep apnea, details discussed above. Hyperlipidemia and hypertension. PAST SURGICAL HISTORY: Vasectomy. DRUG ALLERGIES: Not known. OUTPATIENT MEDICATIONS: Metoprolol 50 mg twice a day, Zoloft 50 mg p.o. daily, Zocor 20 mg p.o. daily, amlodipine 5 mg p.o. daily. SOCIAL HISTORY: Nonsmoker. No history of alcohol. No history of IV drugs. FAMILY HISTORY: Negative for sleep apnea. REVIEW OF SYSTEMS: Fourteen-point review of system was done. Positive for around 35 pounds weight loss. No restlessness in lower extremities. No sleepwalking or sleep talking. No anxiety or panic attacks. No depression. No palpitations. No heartburn. PHYSICAL EXAMINATION: VITAL SIGNS: BP is 179/78, pulse 52, respirations 16, temperature 98.2. Saturation 98% on room air. Height is 5 feet 8 inches, weight is 289. BMI 43.9. Neck size 18 inches. GENERAL appearance: Obese, calm and comfortable. HEAD is atraumatic, normocephalic. NECK: Supple. No JVD. No goiter or neck masses. Mallampati class 4. LUNGS: Diminished, otherwise clear. HEART: Heart sounds are regular rate and rhythm. Normal S1, S2, No S3, no murmurs. ABDOMEN: Soft, nontender. No organomegaly. EXTREMITIES: No edema, cyanosis or clubbing. IMPRESSION: 1. History of obstructive sleep apnea. Diagnosis was established through a Sleep Center in [place] approximately 12 years ago and the patient is currently using an older generation REM Star unit which is set at a pressure of 12 cm of water. He is using a Mirage Quattro fullface mask, medium size. The patient is presenting for re-evaluation. He is interested in updating his CPAP unit. 2. Obesity with interval 35 pounds weight loss. Current body mass index is 43.9. 3. Hypertension with uncontrolled blood pressure. 4. Hyperlipidemia. PLAN: 1. Tighter blood pressure control. 2. Encourage further weight loss. 3. The patient is interested in updating his CPAP machine. I think that is reasonable. We will do a home sleep study. If it is positive, we will offer the patient a newer-generation ResMed APAP unit. I am also interested in updating his CPAP equipment including his mask. He will benefit from a full-face mask probably a Simplus or an AirFit F20. Further recommendations will be done after obtaining his home sleep study. MMODL / IJN: [id number] /
== END ==
LOC: SLEEP 13:39
PROVIDERS: ATTEND Internal Medicine Critical Care Medicine
DX: G47.33 Obstructive sleep apnea (adult) (pediatric) (principal); E66.9 Obesity, unspecified; I10 Essential (primary) hypertension; E78.5 Hyperlipidemia, unspecified; Z68.41 Body mass index [BMI] 40.0-44.9, adult; Z99.89 Dependence on other enabling machines and devices
CPT/HCPCS: 99211

== ENCOUNTER → 2021-07-29 | Outpatient (CLI) | payer BC ==
--- NOTE | 2021-07-29 14:12 | P.PN ---
Subjective Progress Note Date: 07/29/21 66-year-old male patient who is coming in for her compliance Regarding his CPAP unit. The patient had a wall or degeneration CPAP that was given to him through [facility] and he came into the sleep center to be reevaluated and he was in need for new CPAP machine. I give the patient had a quick home sleep study and a diagnosis was reconfirmed. The patient was diagnosed having severe MIR with an AHI 56, subsequently, the patient was given a ResMed 11 APAP unit at a minimum pressure of 10 and a maximum pressure of 20. Note that his previous machine was set at a pressure follow centimeters of water. Today, the patient is coming in for a compliance check. Is quite content and happy with the cl inical response. His new machine is very quiet and he is not snoring at all while on treatment. He has been using his machine every night. He is waking up refreshed and alert during the day. I check her compliance data that was collected between 06/29/2021 and 07/28/2021. Based on the data collection, the patient has been averaging around 7 hours and 30 minutes of CPAP use per night and his leak is minimal at 11 L per minute and his AHI while on treatment is down to 1.2. No central events have emerged while on treatment. The 95th percentile pressure on the CPAP unit has been 13.8 cm of water. The patient is using an airfit F20 fullface mask medium size. No complaints. No headaches. No hypersomnia and sleepiness during the day. His sleep schedule is quite fixed and the patient has no complaints whatsoever at this point in time. No significant weight changes since his last evaluation. His current [place] score is at 4. Objective - Exam The patient has a BP of 170/89, pulse is 54, respiration of 16, and weight is 252 with a body mass index of 38.3 and a temperature of 97.2. His current [place] score is at 4. The patient appeared well nourished and normally developed. Vital signs as documented. Head exam is unremarkable. No scleral icterus or corneal arcus noted. Neck is without jugular venous distension, thyromegaly, or carotid bruits. Carotid upstrokes are brisk bilaterally. Lungs are clear to auscultation and percussion. Cardiac exam reveals the PMI to be normally sized and situated. Rhythm is regular. First and second heart sounds normal. No murmurs, rubs or gallops. Abdominal exam reveals normal bowel sounds, no masses, no organomegaly and no aortic enlargement. Extremities are nonedematous and both femoral and pedal pulses are normal.Examination of the skin revealed no evidence of significant rashes, suspicious appearing nevi or other concerning lesions.Neurologically, the patient is awake and alert and the patient does not have any focal neurological deficit. Cranial nerves are essentially intact. Assessment and Plan Plan: Severe symptomatic obstructive sleep apnea with an AHI of 56 and the patient was successfully treated with a newer generation ResMed 11 APAP unit. Treatment has been quite successful and the patient has been very compliant Chronic hypersomnia, improved on CPAP therapy and the [place] score is currently at 4 Hypertension, Hyperlipidemia Plan I checked the patient's CPAP unit. I checked the compliance data. The patient has no issues using his CPAP she. The patient has been averaging at least 7 hours and 30 minutes of CPAP use per night and his AHI is down to 1.2 and his 95th percentile pressure is at 13.8. Keep the patient on APAP mode. Keep the same mask interface. Encourage weight loss. Sleep hygiene measures are good. We'll see me back in a year's time in follow-up. We'll continue to supply the patient with refills on his mask and tubing and filters for his CPAP unit.
== END ==
LOC: SLEEP 13:55
PROVIDERS: ATTEND Internal Medicine Critical Care Medicine
DX: G47.33 Obstructive sleep apnea (adult) (pediatric) (principal); I10 Essential (primary) hypertension; E78.5 Hyperlipidemia, unspecified